=== PATIENT | female | born 1970 | race American Indian/Alaskan Native ===

== ENCOUNTER 2017-05-04 11:16 | Outpatient (CLI) | payer BC ==
--- NOTE | 2017-05-05 08:40 | Mammography Report ---
BILATERAL DIGITAL SCREENING MAMMOGRAM with CAD: 05/04/17 11:16:00 CLINICAL: Routine screening. COMPARISON:03/30/16 FINDINGS: The breasts are heterogeneously dense, which may obscure small masses. No mass, architectural distortion or suspicious calcifications. IMPRESSION: No mammographic evidence of malignancy. BI-RADS CATEGORY: 1 - - Negative RECOMMENDATION: Routine mammographic screening in one year. COMMENT: Patient follow-up letters are generated by our [employer] mobile [employer] application.
== END 2017-05-04 11:17 | disposition home or self-care (01) ==
LOC: SPVWC 11:16
PROVIDERS: ATTEND Obstetrics & Gynecology
DX: Z12.31 Encounter for screening mammogram for malignant neoplasm of breast (principal)
CPT/HCPCS: 77067; G0202

== ENCOUNTER 2018-05-09 09:22 | Outpatient (CLI) | payer BC ==
--- NOTE | 2018-05-09 16:05 | Mammography Report ---
BILATERAL DIGITAL SCREENING MAMMOGRAM with CAD: 05/09/18 09:22:00 CLINICAL: Routine screening. COMPARISON:05/04/17 FINDINGS: The breasts are heterogeneously dense, which may obscure small masses. No mass, architectural distortion or suspicious calcifications. IMPRESSION: No mammographic evidence of malignancy. BI-RADS CATEGORY: 1 - - Negative RECOMMENDATION: Routine mammographic screening in one year. COMMENT: Patient follow-up letters are generated by our [employer] application.
== END 2018-05-09 09:23 | disposition home or self-care (01) ==
LOC: SPVWC 09:22
PROVIDERS: ATTEND Obstetrics & Gynecology
DX: Z12.31 Encounter for screening mammogram for malignant neoplasm of breast (principal)
CPT/HCPCS: 77067

== ENCOUNTER 2018-05-10 07:12 | Day surgery (SDC) | payer BC ==
--- NOTE | 2018-05-09 19:10 | Short Stay Summary ---
Short Stay Documentation Date of service: 05/10/18 Narrative H&P: This is a 48 year-old female with a ling history of ISHMAEL 1. Her last pap smear revealed LSIL with ECC + for ISHMAEL 1. She was unable to tolerate LEEP twice in the office even after receiving Valium, Lortab and Motrin prior to the last attempt. She presents now for LEEP with sedation. Patient has been reassessed/reevaluated/re-examined. H&P has been reviewed. No interval changes. Past History : 3 Term Births: 2 Living Children: 2 Prev : 2 Spont. 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 Operations: Tubal Ligation LEEP 2009 Abnormal PAP: positive Infection History HIV Risk Eval: no Hx of STD: HSV Active Medications (reviewed today): IBUPROFEN 800 MG ORAL TABLET (IBUPROFEN) 1 po TID (PRN) ATENOLOL TABLET (ATENOLOL TABS) Current Allergies (reviewed today): No known allergies Past Medical History: Reviewed history from 08/18/2010 and no changes required: Hypertension Past Surgical History: Reviewed history from 07/31/2013 and no changes required: delivery x2 Tubal Ligation LEEP 2009 Family History Summary: Reviewed history Last on 02/27/2015 and no changes required:05/09/2018 Other family member - Has No Family History of Biliary Tract Cancer - Entered On : 03/30/2016 Other family member - Has No Family History of Brain Cancer - Entered On: 2015 Other family member - Has No Family History of DVT/PE on OCP - Entered On: 2015 Other family member - Has No Family History of Kidney/Urinary Tract Cancer - Entered On: 03/30/2016 Other family member - Has No Family History of Pancreatic Cancer - Entered On: Other family member - Has No Family History of Stomach Cancer - Entered On: 03/30 Other family member - Has No Family History of Small Bowel Cancer - Entered On: 03/30/2016 Other family member - Has No Family History of Uterine Cancer - Entered On: 03/30 General Comments - FH: No Family History of Breast Cancer No Family History of Colon Cancer No Family History of Ovarvian Cancer No Family History of DVT/PE on OCP Social History: Reviewed history from 04/26/2017 and no changes required: Patient is Smoking History: Patient has never smoked. Risk Factors: Smoked Tobacco Use: Never smoker Smokeless Tobacco Use: Never Passive smoke exposure: no Drug use: no HIV high-risk behavior: no Alcohol use: no Exercise: yes Seatbelt use: 100 % Mammogram History: Date of Last Mammogram: 04/08/2017 PAP Smear History: Date of Last PAP Smear: 12/27/2017 Review of Systems General Denies fever, chills, sweats, anorexia, fatigue, weakness, malaise, weight loss and sleep disorder. Denies vaginal discharge, incontinence, dysuria, hematuria, urinary frequency, amenorrhea, menorrhagia, abnormal vaginal bleeding, pelvic pain, genital sores, decreased libido, painful periods, painful sex, urinary urgency, hot flashes, vaginal dryness, vaginal itching and vaginal odor. CV Denies chest pains, palpitations, syncope, dyspnea on exertion, orthopnea, PND and peripheral edema. Resp Denies cough, dyspnea at rest, excessive sputum, hemoptysis, wheezing and pleurisy. GI Denies nausea, vomiting, diarrhea, constipation, change in bowel habits, abdominal pain, melena, hematochezia, jaundice, gas/bloating, indigestion/ heartburn, dysphagia and odynophagia. Endo Denies cold intolerance, heat intolerance, polydipsia, polyphagia, polyuria and unusual weight change. Breast Denies left breast lump, right breast lump, nipple discharge, bloody discharge from nipple, breast pain, abnormal mammogram and breast enlargement. MS Denies back pain, joint pain, joint swelling, muscle cramps, muscle weakness, stiffness, arthritis, sciatica, restless legs, leg pain at night and leg pain with exertion. Derm Denies rash, itching, dryness and suspicious lesions. Neuro Denies paralysis, paresthesias, headache, seizures, tremors, vertigo, transient blindness, frequent falls, frequent headaches and difficulty walking. Psych Denies depression, anxiety, irritability and mood swings. Eyes Denies blurring, diplopia, irritation, discharge, vision loss, eye pain and photophobia. ENT Denies earache, ear discharge, tinnitus, decreased hearing, nasal congestion, nosebleeds, sore throat and hoarseness. Allergy Denies urticaria, allergic rash, hay fever and recurrent infections. Heme Denies abnormal bruising, bleeding and enlarged lymph nodes. 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 Consent reviewed and signed. Instructed not to eat anything after 3am the day og the surgery. She aware LEEP still may not be able to be performed if her cervix cannot be adequately visualized and accessed. Patient voiced understanding and agrees with plan of care Medications Added to Medication List This Visit: 1) Ibuprofen 800 Mg Oral Tablet (Ibuprofen) .... 1 po tid (prn) - History Principal diagnosis: ISHMAEL 1 on ECC, unable to tolerate LEEP in office - Allergies and Medications Current Medications: Allergies No Known Allergies Allergy (Verified 05/04/18 11:23) Home Medications Medication Instructions Recorded Confirmed Last Taken Type Atenolol/Chlorthalidone [Tenoretic 1 tab PO QDAY 05/04/18 05/04/18 Unknown History 50-25] - Physical exam General appearance: mild distress Lungs: Clear to auscultation, Normal air movement Heart: Regular rate Short Stay Discharge Plan Follow up with: DAWNA SANDS MD [Primary Care Provider] - 7 Days
[2018-05-10] MEDS ORDERED: DILAUDID ONE (07:20)
[2018-05-10] MEDS ORDERED: XYLOCAINE MPF 2% ONE (07:20)
[2018-05-10] MEDS ORDERED: DIPRIVAN 10 MG/ML IV ONE (07:20)
[2018-05-10] MEDS ORDERED: MONSEL'S TP NR (07:41)
[2018-05-10] MEDS ORDERED: SILVER NITRATE TP NR (07:42)
[2018-05-10] MEDS ORDERED: NACL BACTERIOSTATIC INFILTRATI ONE (07:59)
[2018-05-10 08:50] LABS: Hematocrit 40.5 % (30.3-42.9); Hemoglobin 13.4 gm/dl (10.1-14.3)
[2018-05-10] MEDS ORDERED: NARCAN 0.4 MG/1 ML IV PRN (09:02)
[2018-05-10] MEDS ORDERED: TORADOL IV PRN (09:02)
[2018-05-10] MEDS ORDERED: ZOFRAN IV PRN (09:02)
[2018-05-10] MEDS ORDERED: DEMEROL IV PRN (09:02)
[2018-05-10] MEDS ORDERED: DILAUDID IV PRN ×2 (09:02)
--- NOTE | 2018-05-10 09:04 | Anesthesia Consultation ---
Anesthesia Consult and Med Hx Date of service: 05/10/18 - Airway Anesthetic Teeth Evaluation: Good ROM Head & Neck: Adequate Mental/Hyoid Distance: Adequate Mallampati Class: Class III (torus pallidum) Intubation Access Assessment: Probably Good - Pulmonary Exam CTA: Yes - Cardiac Exam Cardiac Exam: RRR Anesthetic Concerns: Patient tolerates 8 METS. no chest pain or SOB. no cold or flu. no N/V - Pre-Operative Health Status ASA Pre-Surgery Classification: ASA2 Proposed Anesthetic Plan: General - Pulmonary Hx Smoking: No Hx Sleep Apnea: No (JULIANNA PRE SCREEN LOW RISK) - Cardiovascular System Hx Hypertension: Yes (2002) - Hematic Hx Sickle Cell Disease: No (SC TRAIT ONLY) - Other Systems Hx Cancer: No
--- NOTE | 2018-05-10 09:04 | Anesthesia Day of Surgery ---
Anesthesia Day of Surgery - Day of Surgery Patient Examined: Yes Patient H&P Reviewed: Yes Patient is NPO: Yes
[2018-05-10] MEDS ORDERED: ACETIC ACID 3% SOLN TP ONE (09:24)
[2018-05-10] MEDS ORDERED: LUGOL'S SOLUTION 5% TP ONE (09:24)
[2018-05-10] MEDS ORDERED: ZOFRAN ONE ×2 (09:40→12:40)
[2018-05-10] MEDS ORDERED: DECADRON ONE (09:40)
[2018-05-10] MEDS ORDERED: TORADOL ONE (09:40)
[2018-05-10] MEDS ORDERED: MONSEL'S TP ONE (10:00)
[2018-05-10] MEDS ORDERED: LACTATED RINGERS 1,000 ML IV SCH (10:00)
--- NOTE | 2018-05-10 10:16 | Discharge Summary ---
Providers - Providers Date of discharge: 05/10/18 Attending physician: BENNETT MICHAUD Primary care physician: DAWNA SANDS MD Hospitalization Condition: Good Procedures: LEEP Disposition: DC-01 TO HOME OR SELFCARE - Discharge Diagnoses (1) Dysplasia of cervix, low grade (ISHMAEL 1) Status: Chronic Core Measure Documentation - Palliative Care Palliative Care/ Comfort Measures: Not Applicable - Core Measures Any of the following diagnoses?: none Exam - Constitutional Vitals: Temp Pulse Resp BP Pulse Ox 98.8 F 76 16 117/82 98 05/10/18 08:13 05/10/18 08:13 05/10/18 08:13 05/10/18 08:13 05/10/18 08:13 General appearance: Present: no acute distress - Respiratory Respiratory effort: normal - Cardiovascular Rhythm: regular Plan Activity: other (No sex ) Weight Bearing Status: Full Weight Bearing Diet: regular Follow up with: BENNETT MICHAUD MD [Staff Physician] - 7 Days DAWNA SANDS MD [Primary Care Provider] - 7 Days
--- NOTE | 2018-05-10 10:36 | Post Operative Note ---
Pre-op diagnosis: ISHMAEL 1 on ECC Post-op diagnosis: same Procedure: LEEP Anesthesia: MAC Surgeon: BENNETT MICHAUD Estimated blood loss: minimal Pathology: list (Cervix, ECC) Specimen disposition: to lab Condition: stable Disposition: PACU
[2018-05-10] MEDS ORDERED: PERCOCET 5/325 PO SCH (12:12)
[2018-05-10] MEDS ORDERED: TRANSDERM-SCOP TD SCH (13:48)
--- NOTE | 2018-05-10 13:59 | Operative Report ---
Operative Report Operative Report: Date: 05/10/2018 Preoperative diagnosis: 1. ISHMAEL-1 on cervical curette during colposcopy 2. Performed LEEP in office. Postoperative diagnosis: 1. ISHMAEL-1 on cervical curette during colposcopy 2. Performed LEEP in office. Procedure: Loop electrosurgical excision procedure of the cervix Surgeon: Olinda Diaz MD Relationship Management Lead: DMITRY Anesthesiologist: Kenzie Boston M.D. Anesthesia: Monitored anesthetic care EBL: Minimal Findings: Cervix was deviated to the patient's left more along the lateral vaginal wall. Procedure: Patient was taken to the OR and placed in lithotomy position. She was then prepared and draped in the usual sterile fashion. Timeout was performed. The bladder was drained of approximately 50 mL of clear yellow urine. A red rubber catheter.. [place] speculum was introduced in the vagina and the anterior lip of the cervix was grasped single-toothed tenaculum. The cervix was positioned adequately Loop electrosurgical excision procedure was performed using 50 W of energy and a small loop electrode. Hemostasis was obtained with ball electrode, manual pressure and Monsel solution. Once hemostasis was noted procedure was ended. Patient taken to recovery in stable condition.
[2018-05-10 21:49] VITALS: BP 132/82
== END 2018-05-10 14:20 | disposition home or self-care (01) ==
LOC: OR 07:12
PROVIDERS: ATTEND Obstetrics & Gynecology
DX: N87.0 Mild cervical dysplasia (principal); D57.3 Sickle-cell trait; I10 Essential (primary) hypertension; Z98.51 Tubal ligation status; Z98.890 Other specified postprocedural states
CPT/HCPCS: 36415; 57522; 81025; 84132; 85014; 85018; 88305; 88307; J1100; J1170; J1885; J2405; J2704; J7120

== ENCOUNTER 2019-05-16 14:28 | Outpatient (CLI) | payer BC ==
--- NOTE | 2019-05-16 16:07 | Mammography Report ---
DIGITAL SCREENING MAMMOGRAM WITH CAD INDICATION: Routine screening mammography. TECHNIQUE: Digital bilateral 2D mammography was obtained in the craniocaudal and mediolateral obliq ue projections. This examination was interpreted with the benefit of Computer-Aided Detection analysi s. COMPARISON: 05/09/2018 FINDINGS: Breast Density: The breasts are heterogeneously dense, which may obscure small masses. There is no evidence of dominant mass, suspicious calcifications or architectural distortion in eith er breast. IMPRESSION: BI-RADS Category 1: Negative. No mammographic evidence of malignancy. Recommend routine screening m ammography in one year. A "normal" or negative report should not discourage follow up or biopsy of a clinically significant f inding. A written summary of these findings will be mailed to the patient. The patient will be entered into a mammography reporting system which will generate a reminder letter for the patient's next appointmen t at the appropriate interval. The [employer] recommends yearly mammograms starting at age 40 and continuing as l supriya as a woman is in good health. Breast MRI is recommended for women with an approximate 20-25% or greater lifetime risk of breast cancer, including women with a strong family history of breast or ova pattie cancer or who have been treated for Hodgkin's disease. Signer Name: Daniel Shearer MD Signed: 05/16/2019 4:02 PM Workstation Name: [id number]
== END 2019-05-16 14:29 | disposition home or self-care (01) ==
LOC: SPVWC 14:28
PROVIDERS: ATTEND Obstetrics & Gynecology
DX: Z12.31 Encounter for screening mammogram for malignant neoplasm of breast (principal); I10 Essential (primary) hypertension
CPT/HCPCS: 77067

== ENCOUNTER 2020-05-22 12:45 | Outpatient (CLI) | payer BC ==
--- NOTE | 2020-05-22 17:23 | Mammography Report ---
DIGITAL SCREENING MAMMOGRAM WITH CAD, 05/22/2020 INDICATION: Routine screening mammography. SCREENING MAMMOGRAM TECHNIQUE: Digital bilateral 2D mammography was obtained in the craniocaudal and mediolateral obliq ue projections. This examination was interpreted with the benefit of Computer-Aided Detection analysi s. COMPARISON: 09/30/2011 through 05/16/2019. FINDINGS: Breast Density: The breasts are heterogeneously dense, which may obscure small masses. There is no evidence of dominant mass, suspicious calcifications or architectural distortion in eithe r breast. IMPRESSION: No mammographic evidence of malignancy or significant change. Follow up recommendation: Routine yearly BI-RADS Category 1: Negative. A "normal" or negative report should not discourage follow up or biopsy of a clinically significant f inding. A written summary of these findings will be mailed to the patient. The patient will be entered into a mammography reporting system which will generate a reminder letter for the patient's next appointmen t at the appropriate interval. The [employer] recommends yearly mammograms starting at age 40 and continuing as l supriya as a woman is in good health. Breast MRI is recommended for women with an approximate 20-25% or greater lifetime risk of breast cancer, including women with a strong family history of breast or ova pattie cancer or who have been treated for Hodgkin's disease. Signer Name: Shimon Berger MD Signed: 05/22/2020 5:19 PM Workstation Name: [email or web address]
== END 2020-05-22 12:46 | disposition home or self-care (01) ==
LOC: SPVWC 12:45
PROVIDERS: ATTEND Obstetrics & Gynecology
DX: Z12.31 Encounter for screening mammogram for malignant neoplasm of breast (principal)
CPT/HCPCS: 77067

== ENCOUNTER 2021-05-26 08:48 | Outpatient (CLI) | payer BC ==
--- NOTE | 2021-05-26 10:01 | Mammography Report ---
DIGITAL SCREENING MAMMOGRAM WITH CAD, 05/26/2021 CLINICAL INFORMATION / INDICATION: Routine screening mammography. SCREENING MAMMO TECHNIQUE: Digital bilateral 2D mammography was obtained in the craniocaudal and mediolateral obliqu e projections. This examination was interpreted with the benefit of Computer-Aided Detection analysis . COMPARISON: 09/30/2011 through 05/22/2020. FINDINGS: Breast Density: The breasts are heterogeneously dense, which may obscure small masses. No dominant mass, suspicious calcifications, or architectural distortion in either breast. Left breast scar is again noted. No new abnormality is seen. IMPRESSION: No mammographic evidence of malignancy. Follow up recommendation: Routine yearly BI-RADS Category 2: Benign. A "normal" or negative report should not discourage follow up or biopsy of a clinically significant f inding. A written summary of these findings will be mailed to the patient. The patient will be entered into a mammography reporting system which will generate a reminder letter for the patient's next appointmen t at the appropriate interval. The [employer] recommends yearly mammograms starting at age 40 and continuing as l supriya as a woman is in good health. Breast MRI is recommended for women with an approximate 20-25% or greater lifetime risk of breast cancer, including women with a strong family history of breast or ova pattie cancer or who have been treated for Hodgkin's disease. Signer Name: Shimon Berger MD Signed: 05/26/2021 9:57 AM Workstation Name: [id number]
== END 2021-05-26 08:49 | disposition home or self-care (01) ==
LOC: SPVWC 08:48
PROVIDERS: ATTEND Obstetrics & Gynecology
DX: Z12.31 Encounter for screening mammogram for malignant neoplasm of breast (principal); N64.89 Other specified disorders of breast
CPT/HCPCS: 77067

== ENCOUNTER 2022-07-14 14:49 | Outpatient (CLI) | payer BC ==
--- NOTE | 2022-07-15 12:14 | Mammography Report ---
DIGITAL SCREENING MAMMOGRAM WITH TOMOSYNTHESIS WITH CAD, 07/14/2022 CLINICAL INFORMATION / INDICATION: Routine Screening Mammography. 3D SCREENING MAMMO 3D SCREENING MA MMO TECHNIQUE: Digital bilateral 2D and 3D mammography with tomosynthesis was obtained in the craniocauda l and mediolateral oblique projections. Computer-Aided Detection (CAD) analysis was used for interpre tation of this study. COMPARISON: 05/26/2021 FINDINGS: Breast Density: The breasts are heterogeneously dense, which may obscure small masses. No dominant mass, suspicious calcifications, or architectural distortion in either breast. No suspicious change since the prior exam. IMPRESSION: No mammographic evidence of malignancy. Follow up recommendation: Routine yearly screening mammogram. BI-RADS Category 1: NEGATIVE A "normal" or negative report should not discourage follow up or biopsy of a clinically significant f inding. A written summary of these findings will be mailed to the patient. The patient will be entered into a mammography reporting system which will generate a reminder letter for the patient's next appointmen t at the appropriate interval. The [employer] recommends yearly mammograms starting at age 40 and continuing as l supriya as a woman is in good health. Breast MRI is recommended for women with an approximate 20-25% or greater lifetime risk of breast cancer, including women with a strong family history of breast or ova pattie cancer or who have been treated for Hodgkin's disease. Signer Name: Shimon Alvarado MD Signed: 07/15/2022 12:10 PM Workstation Name: [id number]
--- NOTE | 2022-07-15 12:15 | Mammography Report ---
DIGITAL SCREENING MAMMOGRAM WITH CAD, 07/14/2022 CLINICAL INFORMATION / INDICATION: Routine screening mammography. TECHNIQUE: Digital bilateral 2D mammography was obtained in the craniocaudal and mediolateral oblique projections. This examination was interpreted with the benefit of Computer-Aided Detection analysis. COMPARISON: 05/26/2021 FINDINGS: Breast Density: The breasts are heterogeneously dense, which may obscure small masses. No dominant mass, suspicious calcifications, or architectural distortion in either breast. No suspicious change since the prior exam. IMPRESSION: No mammographic evidence of malignancy. Follow up recommendation: Routine yearly screening mammogram. BI-RADS Category 1: NEGATIVE A "normal" or negative report should not discourage follow up or biopsy of a clinically significant f inding. A written summary of these findings will be mailed to the patient. The patient will be entered into a mammography reporting system which will generate a reminder letter for the patient's next appointmen t at the appropriate interval. The [employer] recommends yearly mammograms starting at age 40 and continuing as l supriya as a woman is in good health. Breast MRI is recommended for women with an approximate 20-25% or greater lifetime risk of breast cancer, including women with a strong family history of breast or ova pattie cancer or who have been treated for Hodgkin's disease. Signer Name: Shimon Alvarado MD Signed: 07/15/2022 12:11 PM Workstation Name: [id number]
== END 2022-07-14 14:50 | disposition home or self-care (01) ==
LOC: SPVWC 14:49
PROVIDERS: ATTEND Obstetrics & Gynecology
DX: Z12.31 Encounter for screening mammogram for malignant neoplasm of breast (principal)
CPT/HCPCS: 77063; 77067